=== PATIENT | male | born 1965 | race Caucasian/White ===

== ENCOUNTER 2017-05-19 07:38 | Emergency (ER) | payer OTHER ==
--- NOTE | 2017-05-19 07:44 | UC ---
Throat Pain/Nasal Jah HPI - HPI Summary HPI Summary: 51 YEAR OLD MALE PRESENTS WITH COMPLAINS OF SINUS CONGESTION AND COUGH - History of Current Complaint Stated Complaint: CHEST CONGESTION COUGH SINUS Time Seen by Provider: 05/19/17 07:42 Hx Obtained From: Patient Onset/Duration: Sudden Onset Severity: Moderate Pain Scale Used: 0-10 Numeric - 0 - Allergies/Home Medications Allergies/Adverse Reactions: Allergies Allergy/AdvReac Type Severity Reaction Status Date / Time No Known Allergies Allergy Verified 05/19/17 07:45 Home Medications: Home Medications [id number] [VICKS DAYQUIL/NYQUIL COLD (Liquid)] 1 mis PO Q6H PRN 05/19/17 [History Confirmed 05/19/17] PMH/Surg Hx/FS Hx/Imm Hx Previously Healthy: Yes - Surgical History Surgical History: None Surgery Procedure, Year, and Place: RIGHT KNEE MENISCUS 07/2015 - Family History Known Family History: Negative: Cardiac Disease, Hypertension, Diabetes, Respiratory Disease - Social History Alcohol Use: Occasionally Substance Use Type: None Smoking Status (MU): Light Every Day Tobacco Smoker Type: Cigars Household Exposure Type: Cigars Review of Systems Constitutional: Negative Skin: Negative Eyes: Negative ENT: Sore Throat, Nasal Discharge, Sinus Congestion Respiratory: Negative Cardiovascular: Negative Gastrointestinal: Negative Genitourinary: Negative Motor: Negative Neurovascular: Negative Musculoskeletal: Negative Neurological: Negative Psychological: Negative All Other Systems Reviewed And Are Negative: Yes Physical Exam Triage Information Reviewed: Yes Vital Signs Reviewed: Yes Eye Exam: Normal ENT: Positive: Pharyngeal erythema, Nasal congestion, Tonsillar swelling Dental Exam: Normal Neck exam: Normal Neck: Positive: 1 Respiratory Exam: Normal Respiratory: Positive: Wheezing Cardiovascular Exam: Normal Abdominal Exam: Normal Musculoskeletal Exam: Normal Neurological Exam: Normal Psychological Exam: Normal Skin Exam: Normal Throat Pain/Nasal Course/Dx - Differential Dx/Diagnosis Provider Diagnoses: COUGH. SINUS CONGESTION Discharge - Discharge Plan Condition: Stable Disposition: HOME Prescriptions: Azithromyxin YULISA (NF) [Z-Yulisa (Zithromax) 250 mg tabs #6] 2 tab PO .TODAY, THEN 1 DAILY #6 tab LoraTADine TAB(NF) [Claritin 10 MG TAB(NF)] 10 mg PO DAILY #30 tab guaiFENesin/CODIEN 100MG-10MG* [Robitussin AC 100Mg-10Mg*] 5 ml PO Q6H PRN #120 udc MDD 20 ML PRN Reason: Cough Patient Education Materials: Cold Symptoms (ED), Bronchospasm (ED), Acute Cough (ED) Forms: *Physical Education Release Referrals: Isrrael Aaron MD [Primary Care Provider] -
[2017-05-19 07:49] VITALS: BP 152/95
== END 2017-05-19 08:07 | disposition home or self-care (01) ==
LOC: UCCORT 07:38
DX: R05 Cough (principal); R09.81 Nasal congestion; F17.210 Nicotine dependence, cigarettes, uncomplicated
CPT/HCPCS: 99212; G0463

== ENCOUNTER 2017-07-14 07:41 | Emergency (ER) | payer OTHER ==
[2017-07-14 07:59] VITALS: BP 162/98
--- NOTE | 2017-07-14 08:16 | UC ---
Throat Pain/Nasal Jah HPI - HPI Summary HPI Summary: nasal congestion x 2 days + pnd, nasal discharge, no fever, no chills, no cough , no body aches - History of Current Complaint Chief Complaint: UCRespiratory Stated Complaint: HEAD COLD Time Seen by Provider: 07/14/17 08:10 Hx Obtained From: Patient Onset/Duration: Gradual Onset, Lasting Days - 2, Still Present Severity: Moderate Cough: None Associated Signs & Symptoms: Positive: Nasal Discharge. Negative: Wheezing, Hoarseness, Sinus Discomfort, Fever, Rash - Allergies/Home Medications Allergies/Adverse Reactions: Allergies Allergy/AdvReac Type Severity Reaction Status Date / Time No Known Allergies Allergy Verified 07/14/17 07:53 Home Medications: Home Medications NK [No Home Medications Reported] 07/14/17 [History Confirmed 07/14/17] PMH/Surg Hx/FS Hx/Imm Hx Previously Healthy: Yes - Surgical History Surgical History: Yes Surgery Procedure, Year, and Place: RIGHT KNEE MENISCUS 07/2015 - Family History Known Family History: Negative: Cardiac Disease, Hypertension, Diabetes, Respiratory Disease - Social History Alcohol Use: Occasionally Substance Use Type: None Smoking Status (MU): Current Some Day Smoker Type: Cigars Amount Used/How Often: every few months Household Exposure Type: Cigars - Immunization History Most Recent Influenza Vaccination: Not the 2016/2017 Season Review of Systems Constitutional: Negative Skin: Negative Eyes: Negative ENT: Nasal Discharge, Sinus Congestion Respiratory: Negative Cardiovascular: Negative Gastrointestinal: Negative Is Patient Immunocompromised?: No All Other Systems Reviewed And Are Negative: Yes Physical Exam Triage Information Reviewed: Yes Appearance: Well-Appearing, No Pain Distress, Well-Nourished Vital Signs: Initial Vital Signs Temp 98 F 07/14/17 07:54 Pulse 65 07/14/17 07:54 Resp 16 07/14/17 07:54 BP 162/98 07/14/17 07:54 Pulse Ox 99 07/14/17 07:54 Vital Signs Reviewed: Yes Eye Exam: Normal Eyes: Positive: Conjunctiva Clear ENT: Positive: Normal ENT inspection, Hearing grossly normal, Pharynx normal, Nasal congestion, Nasal drainage. Negative: TMs normal, TM bulging, TM dull, TM red Neck exam: Normal Neck: Positive: Supple, Nontender, No Lymphadenopathy Respiratory: Positive: Chest non-tender, Lungs clear, Normal breath sounds Cardiovascular: Positive: RRR, No Murmur, Pulses Normal Neurological Exam: Normal Neurological: Positive: Alert Skin Exam: Normal Throat Pain/Nasal Course/Dx - Differential Dx/Diagnosis Provider Diagnoses: URI Discharge - Discharge Plan Condition: Stable Disposition: HOME Patient Education Materials: Upper Respiratory Infection (ED) Referrals: Isrrael Aaron MD [Primary Care Provider] - If Needed
== END 2017-07-14 08:21 | disposition home or self-care (01) ==
LOC: UCCORT 07:41
DX: J06.9 Acute upper respiratory infection, unspecified (principal); Z72.0 Tobacco use
CPT/HCPCS: 99211; G0463

== ENCOUNTER 2017-08-13 07:20 | Emergency (ER) | payer OTHER ==
[2017-08-13 07:33] VITALS: BP 158/101
--- NOTE | 2017-08-13 08:09 | UC ---
Respiratory Complaint HPI - HPI Summary HPI Summary: Cough, congestion, sinus pressure for about two-three days. No fever. THere is some chest pressure with cough. he is not a smoker. No chronic sinus or lung disease. - History of Current Complaint Chief Complaint: UCRespiratory Stated Complaint: SORE THROAT COUGH CONGESTION Time Seen by Provider: 08/13/17 07:58 Hx Obtained From: Patient Onset/Duration: Gradual Onset, Lasting Days Timing: Constant Severity Initially: Moderate Severity Currently: Moderate Character: Cough: Nonproductive Alleviating Factors: Upright Position, Spontaneous Resolution Associated Signs And Symptoms: Positive: Pleuritic Chest Pain, URI, Nasal Congestion. Negative: Fever, Chills, Wheezing, Hemoptysis, Calf Pain, Calf Swelling - Allergies/Home Medications Allergies/Adverse Reactions: Allergies Allergy/AdvReac Type Severity Reaction Status Date / Time No Known Allergies Allergy Verified 08/13/17 07:33 Home Medications: Home Medications Cyanocobalamin TAB* [Vitamin B12 TAB*] 200 mcg PO DAILY 08/13/17 [History Confirmed 08/13/17] [id number]-[id number] W/ APAP [Tylenol Cold & Flu Severe] 2 tab PO Q4H PRN [History Confirmed 08/13/17] PMH/Surg Hx/FS Hx/Imm Hx Previously Healthy: No - denies asthma or lung disease. - Surgical History Surgical History: Yes Surgery Procedure, Year, and Place: RIGHT KNEE MENISCUS 07/2015 - Family History Known Family History: Negative: Cardiac Disease, Hypertension, Diabetes, Respiratory Disease - Social History Alcohol Use: Occasionally Substance Use Type: None Smoking Status (MU): Former Smoker Type: Cigars Amount Used/How Often: every few months Household Exposure Type: Cigars - Immunization History Most Recent Influenza Vaccination: Not the Season Review of Systems ENT: Sinus Congestion Respiratory: Cough All Other Systems Reviewed And Are Negative: Yes Physical Exam Triage Information Reviewed: Yes Appearance: Well-Appearing, No Pain Distress, Well-Nourished Vital Signs: Initial Vital Signs Temp 98.5 F 08/13/17 07:25 Pulse 95 08/13/17 07:25 Resp 16 08/13/17 07:25 BP 158/101 08/13/17 07:25 Pulse Ox 97 08/13/17 07:25 Vital Signs Reviewed: Yes Eyes: Positive: Conjunctiva Clear ENT: Positive: Normal ENT inspection, Pharyngeal erythema, Nasal congestion, TM bulging, Uvula midline. Negative: Nasal drainage, TM dull, TM red, Tonsillar swelling, Tonsillar exudate, Trismus, Muffled voice Neck: Positive: Supple, Nontender, No Lymphadenopathy. Negative: Nuchal Rigidity Respiratory: Positive: Lungs clear, Normal breath sounds, No respiratory distress, No accessory muscle use, Respiratory distress. Negative: Decreased breath sounds, Accessory muscle use, Crackles, Rhonchi, Stridor, Wheezing Cardiovascular: Positive: No Murmur, Pulses Normal, Brisk Capillary Refill Abdomen Description: Positive: Nontender, No Organomegaly, Soft. Negative: Distended, Guarding Musculoskeletal: Positive: ROM Intact, No Edema Neurological: Positive: Alert, Muscle Tone Normal. Negative: Fatigued Psychological: Positive: Age Appropriate Behavior Skin: Negative: rashes UC Diagnostic Evaluation - Laboratory O2 Sat by Pulse Oximetry: 97 Respiratory Course/Dx - Course Course Of Treatment: uri. viral. Suppportive care described. Amoxacillin if not better day 9 - Differential Dx/Diagnosis Provider Diagnoses: viral uri Discharge - Discharge Plan Condition: Good Disposition: HOME Prescriptions: Amoxicillin PO (*) [Amoxicillin 500 MG CAP*] 500 mg PO TID #30 cap Patient Education Materials: Upper Respiratory Infection (ED) Referrals: Non Staff,Doctor [Primary Care Provider] - Additional Instructions: Decongestants, vics, nasal irrigation. Amoxicillin if not better on day 9
== END 2017-08-13 08:11 | disposition home or self-care (01) ==
LOC: UCCORT 07:20
DX: J06.9 Acute upper respiratory infection, unspecified (principal); Z87.891 Personal history of nicotine dependence
CPT/HCPCS: 99212; G0463